=== PATIENT | female | born 1930 | race African-American/Black ===

== ENCOUNTER → 2019-08-27 | Outpatient (CLI) | payer OTHER | LOC: SJCVCIMAG 12:10 → SJCVC 13:19 | DX: L97.519 Non-pressure chronic ulcer of other part of right foot with unspecified severity (principal); L89.629 Pressure ulcer of left heel, unspecified stage; I10 Essential (primary) hypertension; E78.00 Pure hypercholesterolemia, unspecified; I73.9 Peripheral vascular disease, unspecified; I87.2 Venous insufficiency (chronic) (peripheral); Z79.899 Other long term (current) drug therapy; Z79.82 Long term (current) use of aspirin ==

== ENCOUNTER → 2019-08-31 | Outpatient (CLI) | payer OTHER | LOC: HYPER 13:08 | DX: I70.235 Atherosclerosis of native arteries of right leg with ulceration of other part of foot (principal); L97.512 Non-pressure chronic ulcer of other part of right foot with fat layer exposed; L89.621 Pressure ulcer of left heel, stage 1; I70.245 Atherosclerosis of native arteries of left leg with ulceration of other part of foot; L97.521 Non-pressure chronic ulcer of other part of left foot limited to breakdown of skin; L03.031 Cellulitis of right toe; I70.261 Atherosclerosis of native arteries of extremities with gangrene, right leg; I87.2 Venous insufficiency (chronic) (peripheral); I10 Essential (primary) hypertension; E78.00 Pure hypercholesterolemia, unspecified; M79.674 Pain in right toe(s); M79.672 Pain in left foot; M19.90 Unspecified osteoarthritis, unspecified site; M81.0 Age-related osteoporosis without current pathological fracture; F03.90 Unspecified dementia, unspecified severity, without behavioral disturbance, psychotic disturbance, mood disturbance, and anxiety ==

== ENCOUNTER → 2019-09-14 | Outpatient (CLI) | payer OTHER | LOC: HYPER 15:31 | DX: I70.235 Atherosclerosis of native arteries of right leg with ulceration of other part of foot (principal); L97.512 Non-pressure chronic ulcer of other part of right foot with fat layer exposed; I70.244 Atherosclerosis of native arteries of left leg with ulceration of heel and midfoot; L89.621 Pressure ulcer of left heel, stage 1; L97.421 Non-pressure chronic ulcer of left heel and midfoot limited to breakdown of skin; I70.245 Atherosclerosis of native arteries of left leg with ulceration of other part of foot; L97.521 Non-pressure chronic ulcer of other part of left foot limited to breakdown of skin; L03.031 Cellulitis of right toe; I87.2 Venous insufficiency (chronic) (peripheral); M79.674 Pain in right toe(s); M79.672 Pain in left foot; I10 Essential (primary) hypertension; E78.00 Pure hypercholesterolemia, unspecified; M19.90 Unspecified osteoarthritis, unspecified site; M81.0 Age-related osteoporosis without current pathological fracture; H26.9 Unspecified cataract; F03.90 Unspecified dementia, unspecified severity, without behavioral disturbance, psychotic disturbance, mood disturbance, and anxiety ==

== ENCOUNTER → 2019-11-29 | Outpatient (CLI) | payer OTHER | LOC: SJCVCIMAG 13:27 | PROVIDERS: ATTEND Internal Medicine Cardiovascular Disease | DX: I08.8 Other rheumatic multiple valve diseases (principal); I11.9 Hypertensive heart disease without heart failure; E78.00 Pure hypercholesterolemia, unspecified; I73.9 Peripheral vascular disease, unspecified; I87.2 Venous insufficiency (chronic) (peripheral); E78.5 Hyperlipidemia, unspecified ==

== ENCOUNTER → 2019-11-30 | Outpatient (CLI) | payer OTHER | LOC: SJCVC 14:04 | PROVIDERS: ATTEND Internal Medicine Cardiovascular Disease | DX: R60.9 Edema, unspecified (principal); R06.02 Shortness of breath; E78.00 Pure hypercholesterolemia, unspecified; I10 Essential (primary) hypertension; I87.2 Venous insufficiency (chronic) (peripheral); I73.9 Peripheral vascular disease, unspecified; Z79.899 Other long term (current) drug therapy ==

== ENCOUNTER → 2020-03-03 | Outpatient (CLI) | payer OTHER | LOC: SJCVCIMAG 06:38 | PROVIDERS: ATTEND Internal Medicine Cardiovascular Disease | DX: M79.662 Pain in left lower leg (principal); M79.89 Other specified soft tissue disorders ==